=== PATIENT | male | born 1995 | race African-American/Black ===

== ENCOUNTER 2018-06-08 21:20 | Emergency (ER) | payer OTHER ==
[~2018-06-08] VITALS: Ht 185.4 cm; Wt 90.9 kg
[2018-06-08 21:20] VITALS: BP 125/87
[2018-06-08] MEDS ORDERED: APAP500T10 PO (21:27)
[2018-06-08] MEDS ORDERED: IBUP-1022 PO (22:28)
[2018-06-08] MEDS ORDERED: KETOROLAC 60 MG/2 ML VIAL (J1885) IM ONE (22:30)
[2018-06-08] MEDS ORDERED: IBUPROFEN 600 MG TAB PO ONE (23:00)
== END 2018-06-08 23:00 | disposition home or self-care (01) ==
LOC: M ED 21:20
DX: K08.89 Other specified disorders of teeth and supporting structures (principal); F17.200 Nicotine dependence, unspecified, uncomplicated

== ENCOUNTER 2019-06-17 10:57 | Emergency (ER) | payer OTHER ==
[~2019-06-17] VITALS: Ht 182.9 cm; Wt 93.4 kg
[~2019-06-17 10:57] MED LIST: APAP500T10 PO; IBUP-1022 PO
[2019-06-17 10:58] VITALS: BP 125/77
[2019-06-17] MEDS ORDERED: ONDA4TAB6 PO (11:34)
== END 2019-06-17 11:47 | disposition home or self-care (01) ==
LOC: M ED 10:57
DX: B34.9 Viral infection, unspecified (principal); R11.2 Nausea with vomiting, unspecified; F17.210 Nicotine dependence, cigarettes, uncomplicated